=== PATIENT | male | born 1965 | race Caucasian/White ===

== ENCOUNTER → 2017-07-23 | Outpatient (CLI) | payer BC ==
[2017-07-23 21:13] LABS: ESTRADIOL LEVEL 81.6 pg/mL (7.6-42.6); TESTOSTERONE TOTAL 791 ng/dL (264-916)
== END | disposition home or self-care (01) ==
LOC: LAB 07:43
PROVIDERS: ATTEND General Practice
DX: R51 Headache (principal)
CPT/HCPCS: 36415; 82670; 82679; 84403